=== PATIENT | female | born 1955 | race Caucasian/White ===

== ENCOUNTER 2017-02-12 19:27 | Emergency (ER) | payer OTHER ==
[2017-02-13 00:57] LABS: HEMOGLOBIN 13.6 gm/dl (12.3-15.3); RED BLOOD COUNT 4.62 M/UL (4.00-5.10); WHITE BLOOD COUNT 6.6 K/UL (4.5-11.0)
== END 2017-02-13 17:54 | disposition home or self-care (01) ==
LOC: ER1 19:27
PROVIDERS: Family Medicine
DX: M48.07 Spinal stenosis, lumbosacral region (principal); M51.37 Other intervertebral disc degeneration, lumbosacral region; D18.09 Hemangioma of other sites; I10 Essential (primary) hypertension; G89.29 Other chronic pain; F17.200 Nicotine dependence, unspecified, uncomplicated; Z79.891 Long term (current) use of opiate analgesic; Z88.6 Allergy status to analgesic agent
CPT/HCPCS: 71020; 72146; 72148; 72192; 80048; 85025; 86140; 96374; 96375; 96376; 99283; J2270; J2405

== ENCOUNTER → 2021-08-27 | Outpatient (CLI) | payer OTHER ==
[~2021-08-27] MED LIST: ASPIRIN EC81 MG PO; BUDESONIDE-FO10.2 G1 INH; CETIRIZINE HCL10 MG PO; FERROUS SULFAT325 MG PO; FLONASE 0.05% N16 GM; GABAPENTIN400 MG PO; LANSOPRAZOLE15 MG PO; LEVOTHYROXINE137 MCG PO; LISINOPRIL20 MG PO; MECLIZINE HCL25 MG PO; METOPROLOL TART25 MG PO; POTASSIUM CHLO10 ME1 PO; PROAIR HFA8.5 GM INH; SIMVASTATIN10 MG PO; VENTOLIN/PROVE0.5 ML INH; VITAMIN D21250 MCG PO
[2021-08-27 13:54] LABS: HEMOGLOBIN 12.9 gm/dl (12.3-15.3); RED BLOOD COUNT 4.33 M/UL (4.00-5.10); WHITE BLOOD COUNT 5.2 K/UL (4.5-11.0)
[2021-08-27 14:33] LABS: BUN/CREATININE RATIO 20 (0-10)
== END ==
LOC: EDSTATUS 12:30 → OPSV2 12:30
PROVIDERS: Orthopaedic Surgery
DX: Z01.818 Encounter for other preprocedural examination (principal); M75.120 Complete rotator cuff tear or rupture of unspecified shoulder, not specified as traumatic; M62.511 Muscle wasting and atrophy, not elsewhere classified, right shoulder
CPT/HCPCS: 71046; 73200; 80048; 83036; 85025; 93005